=== PATIENT | female | born 1980 | race American Indian/Alaskan Native ===

== ENCOUNTER 2022-06-08 21:27 | Emergency (ER) | payer MEDICAID | END 2022-06-08 22:01 | LOC: MERGE 21:27 → JD.ED 21:27 | DX: Z02.89 Encounter for other administrative examinations (principal); Z88.8 Allergy status to other drugs, medicaments and biological substances; Z79.899 Other long term (current) drug therapy; Z90.49 Acquired absence of other specified parts of digestive tract | CPT/HCPCS: 99284 ==

== ENCOUNTER 2022-06-11 16:49 | Emergency (ER) | payer MEDICAID ==
[2022-06-11] MEDS ORDERED: Fluorescein 1 MG Ophth Strip EYERT ONE (17:10)
[2022-06-11] MEDS ORDERED: Proparacaine 0.5% Ophth Soln 15 ML Bottle EYEBOTH ONE (17:10)
[2022-06-11] MEDS ORDERED: Tetracaine HCl/PF 0.5% 4 ML Bottle ONE (17:40)
[2022-06-11] MEDS ORDERED: Erythromycin Base 0.5% Ophth Oint 1 GM Tube EYERT ONE (18:02)
== END 2022-06-11 18:37 | disposition home or self-care (01) ==
LOC: MERGE 16:49 → JD.ED 16:49
DX: S63.501A Unspecified sprain of right wrist, initial encounter (principal); H10.31 Unspecified acute conjunctivitis, right eye; Z88.8 Allergy status to other drugs, medicaments and biological substances; Z79.899 Other long term (current) drug therapy; Z90.49 Acquired absence of other specified parts of digestive tract; Y04.0XXA Assault by unarmed brawl or fight, initial encounter
CPT/HCPCS: 99283; A9270